=== PATIENT | male | born 1965 | race Hispanic/Latino ===

== ENCOUNTER 2017-05-06 21:34 | Emergency (ER) | payer SELFPAY ==
[2017-05-06 23:27] LABS: Hematocrit 40.2 % (42.0-52.0); Hemoglobin 14.1 gm/dL (13.5-18.0); Mean Cell Volume 88.9 fl (78-100); Mean Corpuscular Hemoglobin 31.2 pg (27-31); Mean Corpuscular Hgb Conc 35.1 g/dl (32-36); Mean Platelet Volume 8.7 fl (6.0-9.5); Neutrophil # 7.5 K/mm3 (1.3-6.0); Platelet Count 302 K/mm3 (150-450); Red Blood Count 4.52 M/mm3 (4.7-6.0); Red Cell Distribution Width 12.7 % (11.5-14.0)
[2017-05-06 23:36] LABS: Urine Bilirubin Negative (NEGATIVE); Urine Blood 50 /ul (NEGATIVE); Urine Ketone Negative (NEGATIVE); Urine Nitrite Negative (NEGATIVE); Urine Protein 15 mg/dL (NEGATIVE); Urine Specific Gravity 1.025 SP.GR. (1.005-1.030); Urine Urobilinogen Normal (NORMAL)
[2017-05-06 23:40] LABS: Albumin * 4.3 gm/dl (3.4-5.0); Anion Gap 11.4 mmol/L (6.8-13.8); Bilirubin, Total 1.1 mg/dL (0.0-1.1); Ca. Corrected For Albumin 8.5 mg/dL (8.4-10.2); Calcium * 9.1 mg/dL (7.9-10.9); Carbon Dioxide 28.9 mmol/L (24-32.6); Potassium 4.3 mmol/L (3.4-4.6); Total Protein 8.4 gm/dL (6.2-8.2)
--- NOTE | 2017-05-06 23:41 | ERNOTE ---
Abdominal HPI - General Chief Complaint: Abdominal Pain Time Seen by Provider: 05/06/17 23:32 Source: patient, family Exam Limitations: language barrier - Immun/Allergies/Home Medications Immunizatons: IMMUNIZATION HX Immunizations Up to Date No Allergies/Adverse Reactions: Allergies No Known Allergies Allergy (Unverified 12/08/13 07:03) Home Medications: HOME MEDICATIONS Ibuprofen [Motrin] 200 - 800 mg PO Q6H PRN 05/06/17 [Last Taken Unknown] Lisinopril [Zestril] 10 mg PO DAILY 05/06/17 [Last Taken Unknown] - History of Present Illness Narrative: abdominal pain mid epigastric for 6 hours Timing: constant Quality: moderate Activities at Onset: none Review of Systems - Review of Systems Constitutional: Present: no symptoms reported EYE: Present: no symptoms reported ENT: Present: no symptoms reported Respiratory: Absent: shortness of breath Cardiology: Absent: chest pain Gastrointestinal/Abdominal: Present: See HPI, nausea, vomiting, abdominal pain. Absent: diarrhea, constipation Genitourinary: Present: no symptoms reported Musculoskeletal: Present: no symptoms reported Skin: Present: no symptoms reported Neurological: Present: no symptoms reported Endocrine: Present: no symptoms reported Hematologic/Lymphatic: Present: no symptoms reported Psych: Present: no symptoms reported - Patient's Past Medical History Patient History - Medical: Kidney stone Patient History - Cardiac/Respiratory: No pertinent hx Patient History - Cancer: No Hx of Cancer Patient History - Surgical Procedures: Noncontributory Patient History - Other: None - Family History Mother Family History - Medical: No pertinent hx Family History - Cardiac/Respiratory: No pertinent hx Father Family History - Medical: , No pertinent hx Family History - Cardiac/Respiratory: Coronary Heart Disease - Social History Living Situations: home Abuse History: No History of abuse Psych History: No pertinent hx Smoking Status: Never smoker Alcohol Use: none Drug Use: none - Immunizations Immunizations Up to Date: No Physical Exam - Physical Exam General Appearance: Present: wd/wn, alert, no apparent distress Head Exam: Present: normal inspection, no evidence of injury Ears, Nose, Throat: Present: normal ENT inspection Respiratory: Present: no respiratory distress, normal breath sounds, lungs clear Cardiovascular/Chest: Present: regular rate, rhythm, no murmur Gastrointestinal/Abdominal: Present: tenderness - epigastric , abnormal bowel sounds - hypoactive. Absent: guarding, rebound Back Exam: Present: normal inspection, normal range of motion Extremity Exam: Present: normal inspection, normal range of motion Neurological Exam: Present: alert, oriented, normal mood/affect Skin Exam: Present: normal color, warm/dry ED Progress - Results and Orders Patient's Lab Results:: I have reviewed the patient's lab results. Results and Orders: Laboratory Tests 05/06/17 05/06/17 05/06/17 23:23 23:23 23:30 WBC 9.0 Hgb 14.1 Hct 40.2 L Plt Count 302 Sodium 141 Potassium 4.3 Chloride 105 Carbon Dioxide 28.9 Anion Gap 11.4 BUN 17 Creatinine 1.21 Est GFR (Non-Af Amer) 67 Random Glucose 124 H Calcium 9.1 Total Bilirubin 1.1 AST 115 H ALT 137 H Alkaline Phosphatase 102 Total Protein 8.4 H Albumin 4.3 Amylase 60 Lipase 127 Urine Color Dark yellow Urine Appearance Clear Urine pH 6.0 Ur Specific [place] 1.025 Urine Protein 15 H Urine Glucose (UA) Negative Urine Ketones Negative Urine Blood 50 H Urine Nitrate Negative Urine Bilirubin Negative Prot Sulfosalicylic Acd Negative Urine Urobilinogen Normal Ur Leukocyte Esterase Negative Urine RBC 10-25 H Urine WBC 5-10 H Ur Epithelial Cells None seen Urine Bacteria Trace Urine Mucus Few - 1+ H Urine Culture Comments No culture indicated - Vital Signs Patient's Vital Signs:: I have reviewed the patient's vital signs. Vital Signs: Vital Signs 05/06/17 05/06/17 21:36 22:22 Temperature 36.5 C Pulse Rate 73 79 Respiratory 14 18 Rate Blood Pressure 147/90 144/76 O2 Sat by Pulse 100 100 Oximetry - CT/Ultrasound CT/Ultrasound Narrative: stones and sludge in a mildly distended gallbladder negative sonographic cortez's sign 1.8 mm normal thickness gallbladder wall Tubular structure labeled CBD normal diameter 3.3mm however anatomically equivocal on available images. correlate with lab studies - Progress/Reassessment Chief Complaint: Abdominal Pain Progress Note-Subjective: 05/07/17 06:26 Spoke with the patient about mild liver enzyme elevations and gallstones. He and his express understanding Departure - Departure Clinical Impression: Cholelithiasis Qualifiers: Cholelithiasis location: gallbladder Cholecystitis presence: without cholecystitis Biliary obstruction: without biliary obstruction Qualified Code(s) : K80.20 - Calculus of gallbladder without cholecystitis without obstruction Disposition: Home Follow Up Needed Condition: Good Instructions: Cholelithiasis Additional Instructions: Call for appointment with a surgeon soon. follow a very low fat diet. Return to ER if you are worsening Referrals: Jo Velez FNP [Primary Care Provider] -
[2017-05-06 23:46] LABS: Urine Appearance Clear; Urine Bacteria TRACE; Urine Color Dark Yellow; Urine Mucus Few - 1+
[2017-05-07] MEDS ORDERED: ONDANSETRON HCL/PF 2 MG/ML VIAL IV ONE (00:20)
[2017-05-07] MEDS ORDERED: NALBUPHINE HCL 20 MG/ML AMPUL IV ONE (00:23)
[2017-05-07] MEDS ORDERED: ONDANSETRON HCL/PF 2 MG/ML VIAL ONE (00:24)
[2017-05-07] MEDS ORDERED: MAG HYDROX/ALUMINUM HYD/SIMETH 30 ML UDC PO ONE (01:40)
[2017-05-07] MEDS ORDERED: SUCRALFATE 1 G/10 ML UDC PO ONE (01:40)
[2017-05-07] MEDS ORDERED: LIDOCAINE HCL 20 ML UDC PO ONE (01:40)
[2017-05-07 02:13] VITALS: BP 131/94
== END 2017-05-07 02:20 | disposition home or self-care (01) ==
LOC: ER 21:34
DX: K80.20 Calculus of gallbladder without cholecystitis without obstruction (principal)
CPT/HCPCS: 36415; 74020; 76705; 80053; 81001; 82150; 83690; 85025; 96374; 96375; 99284; J2405

== ENCOUNTER 2017-05-29 08:52 | Emergency (ER) | payer SELFPAY ==
[2017-05-29] MEDS ORDERED: KETOROLAC TROMETHAMINE 60 MG/2 ML VIAL IM ONE ×2 (09:53→10:02)
[2017-05-29] MEDS ORDERED: ONDANSETRON 4 MG TAB.RAPDIS PO ONE (09:53)
[2017-05-29] MEDS ORDERED: ONDANSETRON 4 MG TAB.RAPDIS ONE (10:04)
--- NOTE | 2017-05-29 10:04 | ERNOTE ---
Abdominal HPI - General Chief Complaint: Abdominal Pain Time Seen by Provider: 05/29/17 09:43 Source: patient Exam Limitations: no limitations - Immun/Allergies/Home Medications Immunizatons: IMMUNIZATION HX Immunizations Up to Date No Allergies/Adverse Reactions: Allergies No Known Allergies Allergy (Verified 05/29/17 09:02) Home Medications: HOME MEDICATIONS Ibuprofen [Motrin] 200 - 800 mg PO Q6H PRN 05/06/17 [Last Taken Unknown] Lisinopril [Zestril] 10 mg PO DAILY 05/06/17 [Last Taken Unknown] oxyCODONE HCL/ACETAMINOPHEN [Percocet 5 MG/325 MG] 1 tab PO Q4H PRN #20 tab 08/05 [Last Taken Unknown] - History of Present Illness Narrative: Patient has had intermittent RUQ pain for many years, gets pain episodes every few months. His last episode was three weeks ago, he was seen in the ER and diagnosed with gallstone. As he has no insurance he has not been able to afford getting his gallbladder removed. His current pain episode started 19 hours ago, nausea, no vomiting. He has tried tylenol with slight short relieve Review of Systems - Review of Systems Constitutional: Absent: recent illness, fever, chills ENT: Absent: sore throat Respiratory: Absent: shortness of breath Cardiology: Absent: chest pain, palpitations Gastrointestinal/Abdominal: Present: See HPI, nausea, abdominal pain. Absent: vomiting, diarrhea, constipation Genitourinary: Present: no symptoms reported Musculoskeletal: Present: no symptoms reported Skin: Absent: rash Neurological: Absent: headache - Patient's Past Medical History Patient History - Medical: Kidney stone, Other - gallstone Patient History - Cardiac/Respiratory: No pertinent hx Patient History - Cancer: No Hx of Cancer Patient History - Surgical Procedures: Noncontributory Patient History - Other: None - Family History Mother Family History - Medical: No pertinent hx Family History - Cardiac/Respiratory: No pertinent hx Father Family History - Medical: , No pertinent hx Family History - Cardiac/Respiratory: Coronary Heart Disease - Social History Living Situations: home Abuse History: No History of abuse Psych History: No pertinent hx Alcohol Use: none Drug Use: none - Immunizations Immunizations Up to Date: No Physical Exam - Physical Exam General Appearance: Present: wd/wn, alert, mild distress Respiratory: Present: no respiratory distress, normal breath sounds, no accessory muscle use, lungs clear Cardiovascular/Chest: Present: regular rate, rhythm, no murmur Gastrointestinal/Abdominal: Present: normal bowel sounds, nondistended, soft, tenderness - RUQ and epigastric, Jenkins sign. Absent: guarding, rebound Neurological Exam: Present: alert, oriented, normal mood/affect Skin Exam: Present: normal color, warm/dry ED Progress - Results and Orders Patient's Lab Results:: I have reviewed the patient's lab results. - Vital Signs Patient's Vital Signs:: I have reviewed the patient's vital signs. Vital Signs: Vital Signs 05/29/17 08:58 Temperature 36.7 C Pulse Rate 70 Respiratory 18 Rate Blood Pressure 142/93 O2 Sat by Pulse 99 Oximetry - CT/Ultrasound CT/Ultrasound Narrative: U/S gallbladder: no cholecystitis, no obstruction - Progress/Reassessment Chief Complaint: Abdominal Pain Progress Note-Subjective: 05/29/17 11:30 discussed test results, pain improved after toradol Departure - Departure Clinical Impression: Cholelithiasis Qualifiers: Cholelithiasis location: gallbladder Cholecystitis presence: without cholecystitis Biliary obstruction: without biliary obstruction Qualified Code(s) : K80.20 - Calculus of gallbladder without cholecystitis without obstruction Disposition: Home self-care Condition: Good Instructions: Cholelithiasis, [id number] Referrals: Jo Velez FNP [[facility]] - Prescriptions: oxyCODONE HCL/ACETAMINOPHEN [Percocet 5 MG/325 MG] 1 tab PO Q4H PRN #20 tab PRN Reason: Pain
[2017-05-29 10:14] LABS: Hematocrit 41.7 % (42.0-52.0); Hemoglobin 14.7 gm/dL (13.5-18.0); Mean Cell Volume 88.5 fl (78-100); Mean Corpuscular Hemoglobin 31.2 pg (27-31); Mean Corpuscular Hgb Conc 35.3 g/dl (32-36); Mean Platelet Volume 8.6 fl (6.0-9.5); Neutrophil # 7.4 K/mm3 (1.3-6.0); Neutrophil % 84.9 % (42-75.0); Platelet Count 268 K/mm3 (150-450); Red Blood Count 4.71 M/mm3 (4.7-6.0); Red Cell Distribution Width 12.6 % (11.5-14.0); White Blood Count 8.7 K/mm3 (4.0-10.5)
[2017-05-29 10:26] LABS: Albumin * 4.3 gm/dl (3.4-5.0); Anion Gap 15.9 mmol/L (6.8-13.8); BUN/Creatinine Ratio 14.8 (9.0-21.6); Bilirubin, Total 0.6 mg/dL (0.0-1.1); Ca. Corrected For Albumin 8.4 mg/dL (8.4-10.2); Carbon Dioxide 26.3 mmol/L (24-32.6); Potassium 4.2 mmol/L (3.4-4.6); Total Protein 8.1 gm/dL (6.2-8.2)
[2017-05-30 16:28] VITALS: BP 156/102
== END 2017-05-29 11:33 | disposition home or self-care (01) ==
LOC: ER 08:52
DX: K80.20 Calculus of gallbladder without cholecystitis without obstruction (principal); Z87.442 Personal history of urinary calculi

== ENCOUNTER 2017-06-18 08:00 | Day surgery (SDC) | payer SELFPAY ==
[~2017-06-18 08:00] MED LIST: RINGER'S SOLUTION,LACTATED 1,000 ML IV PRN; ceFAZolin SODIUM 2 GM in DEXTROSE 5 % IN WATER 50 ML IV PRN
[2017-06-18] MEDS ORDERED: RINGER'S SOLUTION,LACTATED 1,000 ML IV ONE ×3 (08:27→13:03)
[2017-06-18] MEDS ORDERED: BUPIVACAINE HCL/EPINEPHRINE 50 ML VIAL IJ ONE ×2 (09:00)
[2017-06-18] MEDS ORDERED: HYDROmorphone HCL 2 MG TABLET PO SCH (12:07)
[2017-06-18] MEDS ORDERED: RINGER'S SOLUTION,LACTATED 1,000 ML IV PRN (12:07)
[2017-06-18 16:42] VITALS: BP 140/82
--- NOTE | 2017-06-18 18:53 | OR ---
Operative Report - Dictated Report Narrative: DATE OF OPERATION: 06/18/2017 PREOPERATIVE DIAGNOSIS: Cholelithiasis and cholecystitis POSTOPERATIVE DIAGNOSIS: Cholelithiasis with cholecystitis (pathology pending) OPERATION: Laparoscopic cholecystectomy SURGEON: SAMARA Stein MD ANESTHESIA Gen. endotracheal Kapil Mcbride CRNA INDICATIONS FOR PROCEDURE: The patient is a 51-year-old male referred from the ER following recent visits for right upper quadrant pain with ultrasound demonstrating cholelithiasis and cholecystitis FINDINGS: Cholelithiasis with evidence of acute and chronic cholecystitis NARRATIVE OF PROCEDURE: The patient was identified preoperatively. Prior to the administration of anesthetic a multidisciplinary timeout observed. With the patient in the supine position, SCDs were placed, 2 g of intravenous Ancef administered, and general endotracheal anesthetic administered. The patient's abdomen was prepped with Betadine solution and a generous operating field outlined with 4 sterile towels. The remainder the patient was covered with a sterile disposable drape. An infraumbilical skin incision was made. Dissection was carried along the umbilical stalk until the fascia of the linea alba was encountered. This was incised. The peritoneum was then elevated and incised to allow entry into the abdomen under direct vision. A Hussan cannula was placed, and the abdomen insufflated with CO2. The laparoscopic camera was introduced and the abdomen briefly explored. Those portions of the liver, stomach, small and large intestine visualized appeared normal. The gallbladder was covered with adherent omentum. Next under direct vision 3 additional working ports were inserted through separate skin incisions, one in the subxiphoid, one in the right upper quadrant, and one in the right flank. The adherent omentum was swept off the apex of the gallbladder by blunt and electrocautery dissection. There was evidence of acute and chronic inflammation. The gallbladder was decompressed with a needle. The puncture site was grasped and the apex of the gallbladder was retracted cephalad revealing omental adhesions to the neck and body of the gallbladder. Omental adhesions were gradually developed by electrocautery dissection down to the expected location of the cystic duct. The cystic duct was dissected free for a sufficient distance for confident identification. It was triply clipped and divided. The cystic artery was identified, clipped and divided. The gallbladder was then removed from the liver bed by retrograde electrocautery dissection. There was chronic intense inflammation of the liver bed. Prior to severing the last attachments of the gallbladder the liver bed was inspected and found to be hemostatic with no evidence of bile leak. The previously placed clips on the cystic duct and artery were seen to be intact. The right upper quadrant was thoroughly irrigated with saline and suctioned clean. The last attachments of the gallbladder were divided. It was placed in an Endobag and parked in the right upper quadrant. The smaller working ports were withdrawn under direct vision to ensure entry site hemostasis. The gallbladder was removed in conjunction with the Hussan cannula. The pneumoperitoneum was allowed to escape, and after receiving a correct sponge needle and instrument count attention was turned to closing the abdomen. The fascia and peritoneum at the umbilicus were approximated with interrupted sutures of #1 Vicryl. Skin incisions were approximated with interrupted vertical mattress sutures of 4-0 nylon. The operative sites were washed and dried. Dressings of Bactroban ointment and large Band-Aids were applied to the small port sites. The umbilical incision was dressed with Bactroban ointment, 2 x 2, large Band-Aid and Medipore tape. The operative procedure was terminated at this point. The patient tolerated the anesthetic and procedure well without complication. There was no measurable blood loss. The gallbladder was submitted to pathology. 0.5% Marcaine with epinephrine was used for local anesthetic infiltration. The patient was transferred to the recovery room awake, extubated , and in stable condition. The patient remained stable throughout a period of postoperative observation. He was able to tolerate po intake and was up without assistance. His pain was controlled with po Dilaudid. His dressings remained dry. I reviewed the operative findings with him and his , and he was given copies of the photographs which appear in the medical record. The patient was discharged home with instructions not to lift and not to drive. He is to leave the current dressing dry and intact for 48 hours, but then may shower and change the dressing daily or as needed. He was given phone numbers to call when necessary signs of wound infection or hematoma. The patient was given a prescription for Dilaudid 2 mg #30 1 po Q6hrs prn pain. A return office appointment was made for 06/24/2017. Reviewed and electronically signed
== END 2017-06-18 08:01 | disposition home or self-care (01) ==
LOC: AMB 08:00
PROVIDERS: ATTEND Surgery
PROC: 0FT44ZZ Resection of Gallbladder, Percutaneous Endoscopic Approach (ICD-10-PCS; principal; 2017-06-18 09:00)
DX: K80.12 Calculus of gallbladder with acute and chronic cholecystitis without obstruction (principal); I10 Essential (primary) hypertension; E78.1 Pure hyperglyceridemia; Z68.26 Body mass index [BMI] 26.0-26.9, adult